=== PATIENT | female | born 1995 | race African-American/Black ===

== ENCOUNTER 2017-10-27 12:53 | Emergency (ER) | payer MEDICAID ==
[~2017-10-27] VITALS: Ht 160 cm; Wt 48.0 kg
[2017-10-27 20:08] VITALS: BP 108/69
== END 2017-10-27 22:28 | disposition left against medical advice (07) ==
LOC: ER 15:02
DX: R10.9 Unspecified abdominal pain (principal); Z53.21 Procedure and treatment not carried out due to patient leaving prior to being seen by health care provider
CPT/HCPCS: 81025

== ENCOUNTER 2019-03-25 19:40 | Emergency (ER) | payer MEDICAID ==
[~2019-03-25] VITALS: Ht 160 cm; Wt 54.0 kg
[2019-03-26 00:36] VITALS: BP 114/77
== END 2019-03-26 00:38 | disposition home or self-care (01) ==
LOC: ER 19:40
DX: J06.9 Acute upper respiratory infection, unspecified (principal); Z98.890 Other specified postprocedural states; Z91.018 Allergy to other foods
CPT/HCPCS: 71045; 81025; 99283